=== PATIENT | female | born 2000 | race African-American/Black ===

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

== ENCOUNTER 2019-11-17 21:02 | Emergency (ER) | payer MEDICAID, SELFPAY ==
[2019-11-17 21:54] LABS: Bacteria/HPF None Seen HPF (None Seen); Bilirubin Negative (Negative); Blood, Urine Negative (Negative); Clarity Clear (Clear); Glucose, Urine (Dipstick) Normal (Negative); Leukocyte 25 Leu/uL (Negative); Nitrite Negative (Negative); Protein, Urine (Dipstick) 10 mg/dL (Neg-Trace); RBC/HPF 0-3 HPF (0-3); WBC/HPF 0-3 HPF (0-3)
[2019-11-17] MEDS ORDERED: cefTRIAXone\\ROCEPHIN 250 MG VIAL ONE (22:49)
[2019-11-17] MEDS ORDERED: Azithromycin 250 MG TAB ONE (22:49)
[2019-11-17] MEDS ORDERED: Lidocaine 1% PF 5 ML VIAL ONE (22:50)
[2019-11-21 01:19] LABS: Chlamydia by PCR Not Detected (NotDetected); GC by PCR Not Detected (NotDetected)
== END 2019-11-17 22:47 | disposition home or self-care (01) ==
LOC: ERS 21:02
DX: N76.0 Acute vaginitis (principal); F17.210 Nicotine dependence, cigarettes, uncomplicated
CPT/HCPCS: 81003; 81015; 87480; 87491; 87510; 87591; 87660; 96372; 99283; J0696; J2001

== ENCOUNTER 2020-04-24 13:43 | Emergency (ER) | payer SELFPAY ==
[2020-04-24 15:03] LABS: Bacteria/HPF None Seen HPF (None Seen); Bilirubin Negative (Negative); Blood, Urine Trace (Negative); Clarity Clear (Clear); Glucose, Urine (Dipstick) Normal (Negative); Ketone, Urine Negative (Negative); Leukocyte 500 Leu/uL (Negative); Nitrite Negative (Negative); Pregnancy Test - Urine (BHCG) Negative (Negative); Pregu Control Background? CLEAR/WHITE (CLR/WHITE); Pregu Control Bar Appear? YES (CONTROL BAR); Protein, Urine (Dipstick) 20 mg/dL (Neg-Trace); Specific Gravity 1.028 (1.002-1.036); Specific Gravity, Urine 1.028 (1.002-1.036); Squamous Epithelial 0-3 HPF (0-3); Urobilinogen Normal mg/dL (Less than 2); WBC/HPF Greater than 50 HPF (0-3)
[2020-04-24] MEDS ORDERED: Lidocaine 1% PF 5 ML VIAL ONE (16:12)
[2020-04-24] MEDS ORDERED: cefTRIAXone\\ROCEPHIN 1 GM VIAL ONE (16:12)
[2020-04-24] MEDS ORDERED: Azithromycin 250 MG TAB ONE (16:14)
[2020-04-26 22:41] LABS: Chlamydia by PCR Not Detected (NotDetected); GC by PCR Not Detected (NotDetected)
== END 2020-04-24 16:38 | disposition home or self-care (01) ==
LOC: ERS 13:43
DX: N39.0 Urinary tract infection, site not specified (principal); H18.609 Keratoconus, unspecified, unspecified eye; F17.210 Nicotine dependence, cigarettes, uncomplicated
CPT/HCPCS: 81003; 81015; 81025; 87491; 87591; 96372; 99283; J0696